=== PATIENT | female | born 1955 | race Caucasian/White ===

== ENCOUNTER 2018-07-28 13:31 | Outpatient (CLI) | payer OTHER ==
[2018-07-28 13:51] LABS: Bilirubin Negative (Negative); Blood, Urine Moderate (Negative); Glucose, Urine (Dipstick) Negative (Negative); Leukocyte Small (Negative); Nitrite Negative (Negative); Protein, Urine (Dipstick) Negative (Neg-Trace); Urobilinogen 0.2 mg/dL (0.2-1.0)
[2018-07-28 14:02] LABS: Clarity Hazy (Clear); Specific Gravity, Urine 1.009 (1.002-1.036)
[2018-07-28 14:06] LABS: Bacteria/HPF Rare-Few HPF (None Seen); Yeast-All Forms Rare HPF (None Seen)
== END 2018-07-28 13:32 ==
LOC: MADLAB 13:31 → MADLABBHPM 13:32
PROVIDERS: ATTEND Family Medicine
DX: R33.9 Retention of urine, unspecified (principal)
CPT/HCPCS: 81001; 87086

== ENCOUNTER 2018-09-07 11:12 | Emergency (ER) | payer OTHER ==
[2018-09-07] MEDS ORDERED: Sodium Chloride 0.9% 1,000 ML ONE (12:50)
[2018-09-07 13:04] LABS: #Basophils 0.1 thou/uL (0.0-0.2); #Eosinphils 0.3 thou/uL (0.0-0.7); #Lymphocytes 4.9 thou/uL (1.20-3.40); #Monocytes 0.8 thou/uL (0.11-0.59); #Neutrophils 5.6 thou/uL (1.40-6.50); %Basophils 1.1 % (0.0-1.0); %Eosinophils 2.9 % (0.0-10.0); %Lymphocytes 41.5 % (21.0-51.0); %Monocytes 6.8 % (0.0-10.0); %Neutrophils 47.7 % (42.0-75.0); Hemoglobin 14.1 g/dL (12.0-16.0); Mean Corpuscular HGB CONC 34.2 g/dL (32.0-36.0); Mean Corpuscular Hemoglobin 33.2 pg (27.0-31.0); Mean Corpuscular Volume 97.2 fL (78.0-98.0); Mean Platelet Volume 7.2 fL (7.4-10.4); Platelet Count 275 thou/uL (130-400); RBC Distribution Width 10.7 % (11.5-14.5); Red Blood Cell (RBC) Count 4.24 mill/uL (4.20-5.40); White Blood Cell (WBC) Count 11.7 thou/uL (4.8-10.8)
[2018-09-07 13:19] LABS: ALT (SGPT) 14 U/L (8-55); AST (SGOT) 12 U/L (5-34); Alkaline Phosphatase 65 U/L (40-150); Anion Gap 16 mmol/L (10-20); BUN (Urea Nitrogen) 14 mg/dL (9.8-20.1); Bilirubin, Total 0.3 mg/dL (0.2-1.2); Calc. Creatinine Clearance 0 mL/min (70-130); Calcium 9.2 mg/dL (7.8-10.44); Carbon Dioxide 27 mmol/L (23-31); Chloride 97 mmol/L (98-107); Estimated GFR-MDRD 74; Globulin 2.7 g/dL (2.4-3.5); Glucose 152 mg/dL (80-115); Protein, Total 6.7 g/dL (6.0-8.3); Sodium 136 mmol/L (136-145)
[2018-09-07 14:10] LABS: Bilirubin Negative (Negative); Blood, Urine Negative (Negative); Clarity Clear (Clear); Glucose, Urine (Dipstick) Negative (Negative); Leukocyte Trace (Negative); Nitrite Negative (Negative); Protein, Urine (Dipstick) Negative (Neg-Trace); Urobilinogen 0.2 mg/dL (0.2-1.0)
[2018-09-07 14:15] LABS: Bacteria/HPF Rare-Few HPF (None Seen); RBC/HPF 0-3 HPF (0-3); Squamous Epithelial 0-3 HPF (0-3); WBC/HPF 0-3 HPF (0-3)
== END 2018-09-07 15:03 | disposition home or self-care (01) ==
LOC: MADERS 11:12
DX: E86.9 Volume depletion, unspecified (principal); R42 Dizziness and giddiness; K21.9 Gastro-esophageal reflux disease without esophagitis; E78.5 Hyperlipidemia, unspecified; I10 Essential (primary) hypertension; J44.9 Chronic obstructive pulmonary disease, unspecified; F41.9 Anxiety disorder, unspecified; F31.9 Bipolar disorder, unspecified; F17.210 Nicotine dependence, cigarettes, uncomplicated; Z79.899 Other long term (current) drug therapy; Z79.82 Long term (current) use of aspirin
CPT/HCPCS: 80053; 81003; 81015; 84443; 84484; 85025; 93005; 96360; 96361; J7050

== ENCOUNTER 2018-11-14 09:55 | Outpatient (CLI) | payer OTHER ==
--- NOTE | 2018-11-14 12:01 | ULT ---
ULTRASOUND GALLBLADDER RIGHT UPPER QUADRANT: Date: 11/14/18 HISTORY: Abdominal mass. COMPARISON: None. FINDINGS: Visualized portions of the aorta, IVC, and pancreas are unremarkable. Common bile duct is normal. No hepatic mass is appreciated. Gallbladder wall thickness is normal. The right kidney measures 10.0 x 5.6 x 4.8 cm, without mass, hydronephrosis, or abnormal calcificatio ns. IMPRESSION: No hepatic mass appreciated. POS: RHEA
== END 2018-11-14 09:56 | disposition home or self-care (01) ==
LOC: MADRAD 09:55
PROVIDERS: ATTEND Urology
DX: R16.0 Hepatomegaly, not elsewhere classified (principal)
CPT/HCPCS: 76705

== ENCOUNTER 2019-02-27 14:30 | Inpatient (IN) | payer OTHER ==
[2019-02-27] MEDS ORDERED: Ondansetron ODT 4 MG TAB PO PRN (14:45)
[2019-02-27] MEDS ORDERED: Acetaminophen 325 MG TAB PO PRN (14:45)
--- NOTE | 2019-02-27 15:30 | RAD ---
XR Chest Pa Lat STANDARD History: Generalized weakness. Altered mental status Comparison: Chest radiograph May 2018 Findings: Lungs are clear. No pneumothorax or effusion. Cardiac silhouette and mediastinal contours a re within normal limits. No acute osseous abnormality. Moderate mid thoracic spine degenerative changes. Impression: No acute intrathoracic abnormality.
[2019-02-27 15:40] VITALS: BMI 35.9
[2019-02-27 15:46] LABS: #Basophils 0.1 thou/uL (0.0-0.2); #Lymphocytes 1.4 thou/uL (1.20-3.40); #Monocytes 0.6 thou/uL (0.11-0.59); #Neutrophils 3.7 thou/uL (1.40-6.50); %Basophils 1.2 % (0.0-1.0); %Eosinophils 0.8 % (0.0-10.0); %Monocytes 10.5 % (0.0-10.0); %Neutrophils 63.5 % (42.0-75.0); Hemoglobin 13.2 g/dL (12.0-16.0); Mean Corpuscular Hemoglobin 30.9 pg (27.0-31.0); Mean Corpuscular Volume 90.8 fL (78.0-98.0); Mean Platelet Volume 5.6 fL (7.4-10.4); Platelet Count 310 thou/uL (130-400); RBC Distribution Width 10.4 % (11.5-14.5); Red Blood Cell (RBC) Count 4.29 mill/uL (4.20-5.40); White Blood Cell (WBC) Count 5.8 thou/uL (4.8-10.8)
[2019-02-27 16:02] LABS: ALT (SGPT) 28 U/L (8-55); AST (SGOT) 28 U/L (5-34); Albumin 4.3 g/dL (3.4-4.8); Alkaline Phosphatase 75 U/L (40-150); Anion Gap 17 mmol/L (10-20); BUN (Urea Nitrogen) Less than 4 mg/dL (9.8-20.1); Bilirubin, Total 0.5 mg/dL (0.2-1.2); Calc. Creatinine Clearance 116 mL/min (70-130); Calcium 9.3 mg/dL (7.8-10.44); Carbon Dioxide 24 mmol/L (23-31); Chloride 98 mmol/L (98-107); Estimated GFR-MDRD 79; Glucose 144 mg/dL (80-115); Potassium 3.3 mmol/L (3.5-5.1); Protein, Total 7.3 g/dL (6.0-8.3); Sodium 136 mmol/L (136-145)
[2019-02-27] MEDS: Famotidine 20 MG TAB PO SCH (21:18)
--- NOTE | 2019-02-28 00:31 | HP ---
PRIMARY CARE AND ADMITTING PHYSICIAN: Dr. Cris Archer. REASON FOR ADMISSION: Increased generalized weakness and change in mental status. BRIEF HOSPITAL COURSE: Ms. Singh is a 63-year-old female who lives in [facility]. The patient was noted to have a strong urine odor and evaluated by me on the 24 of February. Urinalysis showed no acute infection and the patient returned to assisted living. Daughter, Linda, who is involved in the care thought it was due to the Cymbalta and her Cymbalta was decreased from 90 mg to 30 mg per daughter's request. Unfortunately, the patient started experiencing weakness and change in mental status. She was eventually sent to [facility] on the 26 of February for generalized weakness and she was evaluated and had complete blood work. CBC showed no abnormality. BMP showed low sodium of 123 and low potassium of 3.4. The patient had a UA, which showed some leukocytes and squamous epithelial cells. She had a CAT scan of brain without contrast that showed chronic maxillary sinusitis and no acute intracranial abnormality. Vitals were stable and the decision was made to transfer the patient back to assisted living with recommendations to adjust the medicines and most likely the cause of weakness and change in mental status. I received a call today that the patient has progressively worsened and unable to get out of bed in the assisted living and the decision was made to admit her for thorough workup and inpatient admission and medication adjustment. Upon evaluating the patient today, her daughter was present. She complains of weakness and just feeling sick. She complains of back pain which is a chronic pain. She states she was seen recently by pain specialist, but she has not received any of the pain medicines they started her on. She denies any other new medication changes. She denies any fall. She denies any headache. She denies any seizure-like activities. No chest pain, shortness of breath, or palpitations. PAST MEDICAL HISTORY: Bipolar disorder, chronic pain disorder, chronic back pain, neuropathic pain, polyarthropathy, schizophrenia, anxiety, osteoporosis, COPD, hypertension, gait instability, primary insomnia, allergic rhinitis, GERD. PAST SURGICAL HISTORY: Appendectomy, orthopedic surgery of the wrist with pins, left ankle plates and pins, rotator cuff surgery x3. FAMILY HISTORY: Noncontributory. Twin sister with mental disorder. Father with diabetes. ALLERGIES: BACTRIM, CLINDAMYCIN, SULFUR. REVIEW OF SYSTEMS: GENERAL: Generalized weakness and fatigue. HEENT: Denies any nosebleed, trouble swallowing, oral pain, vision changes, or dysphagia. CHEST: Denies chest pain, shortness of breath, palpitation, or dizziness. RESPIRATORY: Denies cough, shortness of breath, or wheezing. ABDOMEN: Denies abdominal pain, nausea, vomiting, or diarrhea. GENITOURINARY: Denies dysuria or hematuria. Complains of a strong smelling urine. SKIN: Denies any blisters or rashes. NEUROLOGICAL: Complains of weakness. PSYCHIATRY: Complains of severe depression. MUSCULOSKELETAL: Complains of gait instability, lower back pain, and weakness to the extremities. PHYSICAL EXAMINATION: VITAL SIGNS: Temperature 97.7, pulse 108, respirations 16, O2 of 100% on room air, blood pressure 102/59. GENERAL: The patient is alert, awake, oriented x3. Lying in bed, no apparent distress. HEENT: Normocephalic, atraumatic. PERRL. Anicteric sclerae. Oral mucous membranes are moist. NECK: Supple. No JVD. LUNGS: Clear to auscultation bilaterally. HEART: S1, S2 rhythm. ABDOMEN: Positive bowel sounds. Soft, nontender, nondistended. EXTREMITIES: No cyanosis, clubbing, or edema. VASCULAR: Carotid, femoral, radial, and dorsalis pulses intact and symmetrical. SKIN: Warm. No rash. NEUROLOGICAL: Cranial nerves 2 through 12 grossly intact. ASSESSMENT: 1. Generalized weakness. 2. Electrolyte imbalance. 3. Altered mental status. 4. Strong urine odor. 5. Severe depression. 6. Polypharmacy. PLAN: Ms. Singh will be admitted to the inpatient floor of [facility]. We will get stat CBC, CMP, UA, and a chest x-ray. We will resume home medications. We will place the patient on PHIL hose for DVT prophylaxis and Protonix for GI prophylaxis. We will replace electrolytes as deemed necessary. We will consider physical therapy consultation once hemodynamically stable enough. ESTIMATED LENGTH OF STAY: 2-3 days. DISPOSITION: assisted. CODE STATUS: The patient is a DNR. Job ID: [id number] MTDD
[2019-02-28 05:22] LABS: Bilirubin Negative (Negative); Blood, Urine Trace (Negative); Glucose, Urine (Dipstick) Negative (Negative); Leukocyte Large (Negative); Nitrite Negative (Negative); Protein, Urine (Dipstick) Negative (Neg-Trace); Urobilinogen 0.2 mg/dL (0.2-1.0); pH, Urine 6.5 (5.0-9.0)
[2019-02-28 05:28] LABS: Clarity Hazy (Clear)
[2019-02-28 05:29] LABS: Bacteria/HPF 2+ HPF (None Seen)
[2019-02-28] MEDS ORDERED: Pregabalin 100 MG CAP PO SCH (09:00)
[2019-02-28] MEDS ORDERED: Albuterol Sulfate 2.5 mg/3 ml Neb NEB PRN (09:00)
[2019-02-28] MEDS ORDERED: risperiDONE 1 MG TAB PO SCH (10:00)
[2019-02-28] MEDS ORDERED: DULoxetine 30 MG CAP PO SCH (10:00)
[2019-02-28] MEDS: Fluticasone Propionate Nasal Spray 16 gm Bottle NASAL SCH ×2 (10:05→21:14)
[2019-02-28] MEDS: Nystatin Powder 15 GM BOT TOP SCH ×2 (10:06→21:14)
[2019-02-28] MEDS: Ibuprofen 600 MG TAB PO SCH ×3 (10:07→21:07)
[2019-02-28] MEDS: DULoxetine 30 MG CAP PO SCH (10:07)
[2019-02-28] MEDS: Furosemide 20 MG TAB PO SCH (10:08)
[2019-02-28] MEDS: Famotidine 20 MG TAB PO SCH ×2 (10:08→21:06)
[2019-02-28] MEDS: Multivitamin W/ Minerals 1 TAB PO SCH (10:08)
[2019-02-28] MEDS: Aspirin 81 mg Enteric Coated Tablet PO SCH (10:09)
[2019-02-28] MEDS ORDERED: Pregabalin 75 MG CAP PO SCH (10:15)
[2019-02-28] MEDS ORDERED: Ipratropium Bromide 2.5 ml Neb NEB PRN ×2 (13:00)
[2019-02-28] MEDS ORDERED: DICLOFENAC SODIUM TP SCH (13:00)
[2019-02-28 13:45] LABS: Bilirubin Negative (Negative); Blood, Urine Negative (Negative); Clarity Clear (Clear); Glucose, Urine (Dipstick) Negative (Negative); Leukocyte Trace (Negative); Nitrite Negative (Negative); Protein, Urine (Dipstick) Negative (Neg-Trace); Urobilinogen 0.2 mg/dL (0.2-1.0)
[2019-02-28 13:54] LABS: Bacteria/HPF Rare-Few HPF (None Seen); RBC/HPF 0-3 HPF (0-3); Specific Gravity, Urine 1.001 (1.002-1.036); Squamous Epithelial 0-3 HPF (0-3); WBC/HPF 0-3 HPF (0-3)
[2019-02-28] MEDS ORDERED: Acetaminophen/Codeine 30-300mg Tablet PO PRN (16:51)
[2019-02-28] MEDS: Ciprofloxacin 500 MG TAB PO SCH (21:06)
[2019-02-28] MEDS: Atorvastatin Calcium 10 MG TAB PO SCH (21:06)
[2019-02-28] MEDS: Temazepam 15 MG CAP PO SCH (21:10)
[2019-02-28] MEDS: Pregabalin 75 MG CAP PO SCH (21:11)
[2019-03-01] MEDS: Ciprofloxacin 500 MG TAB PO SCH ×2 (05:36→22:00)
[2019-03-01] MEDS: Pregabalin 75 MG CAP PO SCH ×2 (08:07→22:02)
[2019-03-01] MEDS: Aspirin 81 mg Enteric Coated Tablet PO SCH (08:08)
[2019-03-01] MEDS: risperiDONE 1 MG TAB PO SCH ×2 (08:08→22:01)
[2019-03-01] MEDS: Multivitamin W/ Minerals 1 TAB PO SCH (08:08)
[2019-03-01] MEDS: DULoxetine 30 MG CAP PO SCH (08:08)
[2019-03-01] MEDS: Ibuprofen 600 MG TAB PO SCH ×3 (08:09→22:01)
[2019-03-01] MEDS: Furosemide 20 MG TAB PO SCH (08:09)
[2019-03-01] MEDS: Fluticasone Propionate Nasal Spray 16 gm Bottle NASAL SCH ×2 (08:09→22:04)
[2019-03-01] MEDS: Nystatin Powder 15 GM BOT TOP SCH ×2 (08:10→22:03)
[2019-03-01] MEDS ORDERED: RALOXIFENE HCL 60 MG PO SCH (09:00)
[2019-03-01 09:42] LABS: #Basophils 0.1 thou/uL (0.0-0.2); #Eosinphils 0.1 thou/uL (0.0-0.7); #Lymphocytes 1.2 thou/uL (1.20-3.40); #Monocytes 0.5 thou/uL (0.11-0.59); #Neutrophils 3.6 thou/uL (1.40-6.50); %Basophils 1.8 % (0.0-1.0); %Eosinophils 2.5 % (0.0-10.0); %Lymphocytes 22.1 % (21.0-51.0); %Monocytes 9.4 % (0.0-10.0); %Neutrophils 64.2 % (42.0-75.0); Hemoglobin 12.1 g/dL (12.0-16.0); Mean Corpuscular HGB CONC 34.3 g/dL (32.0-36.0); Mean Corpuscular Hemoglobin 31.2 pg (27.0-31.0); Mean Corpuscular Volume 90.9 fL (78.0-98.0); Mean Platelet Volume 5.6 fL (7.4-10.4); Platelet Count 225 thou/uL (130-400); RBC Distribution Width 10.5 % (11.5-14.5); Red Blood Cell (RBC) Count 3.88 mill/uL (4.20-5.40); White Blood Cell (WBC) Count 5.5 thou/uL (4.8-10.8)
[2019-03-01 09:46] LABS: Anion Gap 18 mmol/L (10-20); BUN (Urea Nitrogen) 5 mg/dL (9.8-20.1); Calc. Creatinine Clearance 116 mL/min (70-130); Calcium 8.8 mg/dL (7.8-10.44); Carbon Dioxide 22 mmol/L (23-31); Chloride 98 mmol/L (98-107); Estimated GFR-MDRD 79; Glucose 139 mg/dL (80-115); Potassium 3.4 mmol/L (3.5-5.1); Sodium 135 mmol/L (136-145)
[2019-03-01] MEDS ORDERED: Potassium Chloride 20 MEQ TAB PO SCH (20:00)
[2019-03-01] MEDS: Atorvastatin Calcium 10 MG TAB PO SCH (22:00)
[2019-03-01] MEDS: Temazepam 15 MG CAP PO SCH (22:01)
[2019-03-02 05:21] LABS: Anion Gap 14 mmol/L (10-20); BUN (Urea Nitrogen) 6 mg/dL (9.8-20.1); Calc. Creatinine Clearance 129 mL/min (70-130); Calcium 8.9 mg/dL (7.8-10.44); Carbon Dioxide 25 mmol/L (23-31); Chloride 101 mmol/L (98-107); Estimated GFR-MDRD 89; Glucose 125 mg/dL (80-115); Potassium 3.4 mmol/L (3.5-5.1); Sodium 137 mmol/L (136-145)
[2019-03-02] MEDS: Ciprofloxacin 500 MG TAB PO SCH (05:32)
[2019-03-02 06:53] VITALS: BP 149/67; TEMP 97.4
[2019-03-02] MEDS: Fluticasone Propionate Nasal Spray 16 gm Bottle NASAL SCH (08:44)
[2019-03-02] MEDS: risperiDONE 1 MG TAB PO SCH (08:44)
[2019-03-02] MEDS: Furosemide 20 MG TAB PO SCH (08:45)
[2019-03-02] MEDS: Pregabalin 75 MG CAP PO SCH (08:45)
[2019-03-02] MEDS: Aspirin 81 mg Enteric Coated Tablet PO SCH (08:45)
[2019-03-02] MEDS: Multivitamin W/ Minerals 1 TAB PO SCH (08:45)
[2019-03-02] MEDS: Ibuprofen 600 MG TAB PO SCH (08:45)
[2019-03-02] MEDS: DULoxetine 30 MG CAP PO SCH (08:45)
[2019-03-02] MEDS: Nystatin Powder 15 GM BOT TOP SCH (08:46)
--- NOTE | 2019-03-02 21:14 | DIS ---
DATE OF ADMISSION: 02/27/2019 DATE OF DISCHARGE: 03/02/2019 DISCHARGING PHYSICIAN: Dr. Suzi Lynch. PRIMARY CARE PHYSICIAN: Dr. Suzi Lynch. DISCHARGE DIAGNOSES: 1. Generalized weakness. 2. Urinary tract infection, resolved. 3. Hyponatremia, resolved. 4. Altered mental status, resolved. 5. Hypokalemia. 6. Polypharmacy. 7. Bipolar. 8. Schizophrenia. DISCHARGE DISPOSITION: To [facility]. DISCHARGE INSTRUCTIONS: Start physical therapy and occupational therapy at shelter. Ambulate with 4-wheeled walker at all times. Repeat BMP in 1 week. Encourage out of room for meals and out of bed, fall precautions. BRIEF HOSPITAL COURSE: Ms. Singh is a 63-year-old female who was a resident of [facility]. The patient had been seen by me in the emergency room due to generalized weakness, strong urine odor, and worsening mental status. Workup was done while in the emergency room and CAT scan of the head was done, which showed no abnormality. Blood work showed hyponatremia and hypokalemia. The patient was given IV fluids and discharged back home. Per [facility] administrator, the patient has progressively declined and was very weak, unable to get out of the bed or room, so the decision was made to admit the patient and adjust the medications and do some more blood work. During hospitalization, the patient was noted to have a urinary tract infection. She was started on Cipro 500 b.i.d. Culture was pending and 3 days after the culture returned, it showed the patient had no UTI and no growth on the so the Cipro was discontinued. Hyponatremia resolved. Hypokalemia was repleted and with K-Dur orally and by discharge, the potassium was 3.4. The patient's mental status was back to baseline, but she was significantly weak. She was evaluated by Physical Therapy and recommended will need continuous physical therapy to help with gait strengthening. The patient could not go back to assisted living due to weakness and the decision was made to transfer her to [facility]. The patient was discharged back to shelter in a stable condition. The patient's medicine was adjusted due to polypharmacy. It was thought that the Cymbalta attributed to her weakness and she was decreased from 90 mg of Cymbalta daily to 30 mg daily and she tolerated this nicely. DISCHARGE MEDICATIONS: 1. Tylenol 650 q.4. 2. Tylenol with Codeine 1 tab q.6 p.r.n. 3. Ventolin 2.5 neb q.4 p.r.n. shortness of breath or wheezing. 4. Fosamax 70 q.7 days. 5. Aspirin 81 mg daily. 6. Lipitor 40 at bedtime. 7. Cymbalta 30 daily. 8. Furosemide 20 daily. 9. Ibuprofen 600 t.i.d. scheduled. 10. Iron 1 tab daily. 11. Nystatin powder topical b.i.d. 12. Protonix 40 daily. 13. Lyrica 300 mg b.i.d. 14. Risperidone 3 mg p.o. b.i.d. 15. Restoril 30 at bedtime. Job ID: [id number]
[2019-03-07] MEDS ORDERED: Alendronate Sodium 70 mg Tablet PO SCH (09:00)
== END 2019-03-02 13:07 | DRG 690 ==
LOC: MADMS 14:30
PROVIDERS: ADMIT Family Medicine; ATTEND Family Medicine
DX: N39.0 Urinary tract infection, site not specified (principal); E87.1 Hypo-osmolality and hyponatremia; R53.1 Weakness; R41.82 Altered mental status, unspecified; G89.29 Other chronic pain; Z66 Do not resuscitate; F20.9 Schizophrenia, unspecified; F41.9 Anxiety disorder, unspecified; M81.0 Age-related osteoporosis without current pathological fracture; J44.9 Chronic obstructive pulmonary disease, unspecified; I10 Essential (primary) hypertension; R26.81 Unsteadiness on feet; F51.01 Primary insomnia; G47.9 Sleep disorder, unspecified; K21.9 Gastro-esophageal reflux disease without esophagitis; E87.8 Other disorders of electrolyte and fluid balance, not elsewhere classified; R82.998 Other abnormal findings in urine; E87.6 Hypokalemia; F31.9 Bipolar disorder, unspecified; T43.215A Adverse effect of selective serotonin and norepinephrine reuptake inhibitors, initial encounter; Z90.49 Acquired absence of other specified parts of digestive tract; Z98.890 Other specified postprocedural states; Z88.1 Allergy status to other antibiotic agents
CPT/HCPCS: 36415; 71046; 80048; 80053; 81001; 81015; 85025; 87086

== ENCOUNTER 2019-10-16 22:50 | Emergency (ER) | payer OTHER ==
--- NOTE | 2019-10-16 23:19 | RAD ---
XR Chest Pa Lat STANDARD HISTORY: Cough COMPARISON: 02/27/2019 study FINDINGS: Heart size and mediastinum are within normal limits. The lungs are clear of infiltrates. Po stoperative changes of the right shoulder present. IMPRESSION: No active intrathoracic disease.
[2019-10-16 23:48] LABS: #Basophils 0.1 thou/uL (0.0-0.2); #Eosinphils 0.4 thou/uL (0.0-0.7); #Lymphocytes 2.5 thou/uL (1.20-3.40); #Monocytes 0.5 thou/uL (0.11-0.59); #Neutrophils 2.5 thou/uL (1.40-6.50); %Basophils 1.9 % (0.0-1.0); %Eosinophils 6.5 % (0.0-10.0); %Lymphocytes 41.5 % (21.0-51.0); %Neutrophils 42.1 % (42.0-75.0); Hemoglobin 12.1 g/dL (12.0-16.0); Mean Corpuscular HGB CONC 31.7 g/dL (32.0-36.0); Mean Corpuscular Hemoglobin 30.4 pg (27.0-31.0); Mean Corpuscular Volume 96.1 fL (78.0-98.0); Platelet Count 180 thou/uL (130-400); RBC Distribution Width 11.2 % (11.5-14.5); Red Blood Cell (RBC) Count 3.96 mill/uL (4.20-5.40)
[2019-10-17 00:09] LABS: ALT (SGPT) 16 U/L (8-55); AST (SGOT) 25 U/L (5-34); Albumin 3.6 g/dL (3.4-4.8); Alkaline Phosphatase 40 U/L (40-110); Anion Gap 15 mmol/L (10-20); BUN (Urea Nitrogen) 6 mg/dL (9.8-20.1); Bilirubin, Total 0.7 mg/dL (0.2-1.2); Calc. Creatinine Clearance 0 mL/min (70-130); Calcium 8.5 mg/dL (7.8-10.44); Carbon Dioxide 23 mmol/L (23-31); Chloride 106 mmol/L (98-107); Estimated GFR-MDRD 84; Globulin 2.7 g/dL (2.4-3.5); Glucose 114 mg/dL (80-115); Protein, Total 6.3 g/dL (6.0-8.3); Sodium 140 mmol/L (136-145)
== END 2019-10-17 00:58 | disposition home or self-care (01) ==
LOC: MADERS 22:50
DX: R60.1 Generalized edema (principal); K21.9 Gastro-esophageal reflux disease without esophagitis; E78.5 Hyperlipidemia, unspecified; I10 Essential (primary) hypertension; J44.9 Chronic obstructive pulmonary disease, unspecified; F41.9 Anxiety disorder, unspecified; F31.9 Bipolar disorder, unspecified; F20.9 Schizophrenia, unspecified; F17.210 Nicotine dependence, cigarettes, uncomplicated; Z79.899 Other long term (current) drug therapy; Z79.82 Long term (current) use of aspirin; Z79.51 Long term (current) use of inhaled steroids
CPT/HCPCS: 36415; 71046; 80053; 83605; 83880; 84484; 85025; 93005; 94760

== ENCOUNTER 2019-11-07 13:04 | Emergency (ER) | payer OTHER ==
[2019-11-07] MEDS ORDERED: Fluconazole 100 MG TAB ONE (13:36)
== END 2019-11-07 13:44 | disposition home or self-care (01) ==
LOC: MADERS 13:04
DX: B35.4 Tinea corporis (principal); K21.9 Gastro-esophageal reflux disease without esophagitis; E78.5 Hyperlipidemia, unspecified; I10 Essential (primary) hypertension; J44.9 Chronic obstructive pulmonary disease, unspecified; F41.9 Anxiety disorder, unspecified; F31.9 Bipolar disorder, unspecified; F20.9 Schizophrenia, unspecified; Z79.899 Other long term (current) drug therapy
CPT/HCPCS: 99282

== ENCOUNTER 2021-10-24 16:01 | Emergency (ER) | payer MEDICARE, OTHER ==
[2021-10-24] MEDS ORDERED: Acetaminophen 650 MG Suppository ONE (16:24)
[2021-10-24] MEDS ORDERED: Lactated Ringer's 1,000 ML ONE ×2 (16:24→18:12)
[2021-10-24 17:03] LABS: Band 11 % (5-11); Eosinophils 1 % (0-10); Lymphocytes 6 % (21-51); MDiff Complete? YES; Mean Corpuscular HGB CONC 32.6 g/dL (32.0-36.0); Mean Corpuscular Hemoglobin 30.3 pg (27.0-31.0); Mean Corpuscular Volume 92.8 fL (78.0-98.0); Mean Platelet Volume 7.7 fL (7.4-10.4); Monocytes 6 % (0-10); Neutrophil 76 % (42-75); Platelet Count 165 thou/uL (130-400); Platelet Morphology Comment Appears Adequate; RBC Distribution Width 11.9 % (11.5-14.5); Red Blood Cell (RBC) Count 4.61 mill/uL (4.20-5.40); White Blood Cell (WBC) Count 17.8 thou/uL (4.8-10.8)
[2021-10-24 17:04] LABS: ALT (SGPT) 26 U/L (8-55); AST (SGOT) 34 U/L (5-34); Albumin 3.5 g/dL (3.4-4.8); Alkaline Phosphatase 48 U/L (40-110); Anion Gap 19 mmol/L (10-20); BUN (Urea Nitrogen) 16 mg/dL (9.8-20.1); Bilirubin, Total 0.4 mg/dL (0.2-1.2); Calc. Creatinine Clearance 0 mL/min (70-130); Calcium 8.9 mg/dL (7.8-10.44); Carbon Dioxide 22 mmol/L (23-31); Chloride 97 mmol/L (98-107); Globulin 3.4 g/dL (2.4-3.5); Glucose 205 mg/dL (80-115); Lipase 24 U/L (8-78); Magnesium 1.4 mg/dL (1.6-2.6); Potassium 4.3 mmol/L (3.5-5.1); Protein, Total 6.9 g/dL (5.8-8.1); Sodium 134 mmol/L (136-145)
[2021-10-24 17:18] LABS: Bilirubin Negative (Negative); Blood, Urine Negative (Negative); Clarity Clear (Clear); Glucose, Urine (Dipstick) Negative (Negative); Ketone, Urine Negative (Negative); Leukocyte Negative (Negative); Nitrite Negative (Negative); Protein, Urine (Dipstick) Negative (Neg-Trace); Specific Gravity, Urine 1.015 (1.005-1.030); Urobilinogen 0.2 mg/dL (Less than 2)
[2021-10-24 17:20] LABS: CKMB 0.6 ng/mL (0-6.6)
[2021-10-24] MEDS ORDERED: Aspirin 300 MG Suppository ONE (17:28)
[2021-10-24] MEDS ORDERED: Magnesium 2 GM/50 ML BAG (IN WATER) ONE (17:28)
[2021-10-24] MEDS ORDERED: Sodium Chloride 0.9% 100 ML ONE (17:40)
[2021-10-24] MEDS ORDERED: Cefepime 2 GM VIAL ONE (17:40)
[2021-10-24 18:03] LABS: Base Excess-Venous 0.8 mmol/L (-2.0 to 3.0); CO2 Tension (PvCO2) 42.7 mmHg (42.0-51.0); Calcium, Ionized 1.15 mmol/L (1.15-1.33); Chloride 96 mmol/L (98-107); Hemoglobin - Calc 13.4 g/dL (12.0-16.0); Potassium 4.4 mmol/L (3.5-5.1); Sodium 135 mmol/L (138-145); T. Carbon Dioxide 27.3 mmol/L (22.0-28.0); vO2 Saturation-calc 54.5 % (60.0-85.0)
[2021-10-24 18:08] LABS: SARS-CoV-2 NAA Rapid Test DETECTED (NotDetected)
[2021-10-24] MEDS ORDERED: Sodium Chloride 0.9% 250 ML 250 ML ONE ×2 (19:08→19:20)
[2021-10-24 20:03] LABS: Lactic Acid 2.4 mmol/L (0.5-2.2)
[2021-10-24 20:28] LABS: CKMB 1.5 ng/mL (0-6.6)
== END 2021-10-24 21:34 | disposition short-term general hospital (02) ==
LOC: MADERS 16:01
DX: U07.1 COVID-19 (principal); A41.89 Other specified sepsis; E83.42 Hypomagnesemia; R77.8 Other specified abnormalities of plasma proteins; R00.0 Tachycardia, unspecified; I10 Essential (primary) hypertension; E78.5 Hyperlipidemia, unspecified; K21.9 Gastro-esophageal reflux disease without esophagitis; J44.9 Chronic obstructive pulmonary disease, unspecified; F17.210 Nicotine dependence, cigarettes, uncomplicated; Z86.73 Personal history of transient ischemic attack (TIA), and cerebral infarction without residual deficits
CPT/HCPCS: 0240U; 36415; 51701; 70450; 71045; 72125; 80053; 81003; 82330; 82553; 82803; 83605; 83690; 83735; 84443; 84484; 85025; 87040; 87149; 93005; 94760; 96365; 96366; 96367; 96375; J0692; J3370; J3475; J3490; J7050; J7120